=== PATIENT | male | born 1980 | race Caucasian/White ===

== ENCOUNTER 2024-10-01 13:43 | Emergency (ER) | payer BC, SELFPAY ==
--- NOTE | 2024-10-01 13:47 | ED_ITS ---
HPI - URI/Sore Throat General Chief Complaint: Upper Respiratory Infection Stated Complaint: Sore throat Time Seen by Provider: 10/01/24 13:47 History of Present Illness HPI Narrative: 44-year-old male presented for complaint of sore throat, cough, nasal congestion. Onset 11 days. Has been taking Mary-Buckner and Zyrtec. He denies shortness of breath, wheezing nausea vomiting, diarrhea, fever or lethargy. Related Data Home Medications ?Medication ?Instructions ?Recorded ?Confirmed ?Last Taken ?Type omeprazole 20 mg capsule,delayed mg PO 07/03/24 07/03/24 Unknown History release Allergies Allergy/AdvReac Type Severity Reaction Status Date / Time No Known Allergies Allergy Verified 10/01/24 13:48 Review of Systems Review of Systems: CONSTITUTIONAL: Denies body aches, fever, chills, or sweats. EYES: Denies visual changes, redness, or discharge. ENT: reports sore throat rhinorrhea, congestion, CARDIOVASCULAR: Denies chest pain, palpitations, or edema. RESPIRATORY: Denies dyspnea. GASTROINTESTINAL: Denies abdominal pain, nausea, vomiting, or diarrhea. 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 EYES: conjunctivae clear ENT: Mucous membranes moist. TM pearly rosas with normal light reflex bilaterally; no tragal tenderness. Oropharynx erythematous without lesions. Tonsils not enlarged and without exudate. No drooling, no hoarseness, no trismus, uvula midline. No tripod positioning, hot potato voice, or soft palate swelling. NECK: Supple. No lymphadenopathy CHEST: Clear to auscultation, breath sounds equal. No respiratory distress, speaks in full sentences. HEART: Regular rate and rhythm. No murmur heard. SKIN: Warm, dry, no rash. NEURO: Alert and oriented x3. Course Course Emergency Course: Patient is aware of diagnosis, understands and agrees to treatment plan. A nticipatory guidance given. Patient agrees to follow-up as directed and is aware of reasons to seek care at the emergency department. Portions of this record may have been created with voice recognition software Level of Care: Express Care Visit MDM - URI/Sore Throat MDM Narrative Medical decision making narrative: Discussed physical exam findings. Advised supportive measures and signs/symptoms to go to the ER. Pt is appropriate for outpt treatment and f/u. Differential Diagnosis Differential diagnosis: Likely upper respiratory infection, sinusitis, viral infection, bronchitis and pharyngitis Discharge Plan Discharge Clinical Impression: Sinusitis Patient Disposition: Home Condition: Stable Instructions: Antibiotic Form, Rhinosinusitis (ED) Additional Instructions: Take antibiotic as directed Recommendation: Flonase spray and Zyrtec (or Claritin/Yumiko) over the counter Cough syrup may cause drowsiness; avoid driving or take it at night time. Coricidin HBP if you have hypertension Tylenol 1000mg every 8 hours as needed for pain Symptomatic treatment includes: rest, fluids, and increase humidity of the air at home. Follow up with your primary care provider in 1 week. Go to the ER for worsening symptoms or concerns. Patient Language: Australian Prescriptions: New prednisone 20 mg tablet 40 mg PO DAILY 4 Days Qty: 8 0RF amoxicillin-pot clavulanate 875-125 mg tablet 1 tablet PO Q12H 7 Days Qty: 14 0RF No Action omeprazole 20 mg capsule,delayed release(DR/EC) PO levothyroxine 150 mcg tablet 150 mcg PO DAILY Qty: 90 1RF Follow-up/Referrals: Mary Jo Dover APRN [Primary Care Provider] - Time of Disposition: 13:57
[2024-10-01 13:49] VITALS: BP 152/101; PULSE 86; RESP 18; TEMP 36.4; O2SAT 96
--- OUTSIDE RECORDS SUMMARY | 2024-10-01 13:56 | XMS_ITS | Data Portability ---
Author Organization [place] - [facility], [facility] Address [address] [facility] [address] Assessment No assessment recorded. Plan of Treatment Reminders Order Date Submit Date Provider Last Modified By Organization Details Last Modified Time Details Appointments None recorded. Lab None recorded. Referral None recorded. Procedures None recorded. Surgeries None recorded. Imaging XR, lumbar spine, 2 view 2022 023 [email or web address], [address], 3 10:56:27 Medication Orders Medrol (Carl) 4 mg tablets in a dose pack 2022 023 [id number], [address], [place], [phone], 3 14:59:10 cyclobenzap rine 10 mg tablet 2022 023 [facility] #[id number], [address], [place], [phone], 3 14:59:11 Patient TargetsNo targets recorded. Patient InstructionsNo instructions recorded. Reason for Referral None Reported. Results Created Date Observation Date Name Description Value Unit Range Abnormal Flag Note LastModifiedBy Organization Detail LastModifiedTime 06/29/19 23 XR, lumba r spine , 2 view No observ ation record ed. [email or web address] T1 [address], [address], 06/28/2022 14:59:19 Result Notes None recorded. Medical Equipment None Reported. Allergies No known drug allergies Medications Name Sig Start Date Stop Date Status Note LastModified by Organization Details LastModified Time cyclobenzapr ine 10 mg tablet TAKE 1 TABLET BY MOUTH THREE TIMES DAILY FOR 10 DAYS NEEDED active Not Available Not Available No t Available azithromycin 250 mg tablet TAKE 2 TABLETS BY MOUTH FOR 1 DAY THEN TAKE 1 TABLET BY MOUTH DAILY FOR 4 DAYS active Not Available Not Available N ot Available benzonatate 100 mg capsule TAKE 1 CAPSULE BY MOUTH THREE TIMES DAILY NEEDED FOR COUGH active Not Available Not Available No t Available levothyroxin e 150 mcg tablet active Not Available Not Available Not Available codeine 10 mg-guaifenes in 100 mg/5 mL oral liquid TAKE 5 TO 10 ML BY MOUTH EVERY 4 HOURS NEEDED FOR COUGH active Not Available Not Available No t Available methylpredni solone 4 mg tablets in a dose pack FOLLOW PACKAGE DIRECTIONS active Not Available Not Available N ot Available escitalopram 10 mg tablet active Not Available Not Available Not Available Vitals Date Recorded Body height Body mass index (BMI) Body weight Respiratory rate Provider Name and Address Organization Details Last Updated DateTime 06/28/2022 180.34 cm 29.3 kg/m2 33569.4 g 20 /min Karis Arguelles [facility], 06/28/2022 14:38:19 Social History None recorded. Functional Status None recorded. Mental Status None recorded. Family History Nothing Reported. Medical History No medical history recorded. Past Encounters Encounter ID Performer Location Encounter Start Date Encounter Closed Date Diagnosis/Indication Diagnosis SNOMED-CT Code Diagnosis ICD10 Code Diagnosis Note [id number] Adrian Torre MD [address] [id number] 06/28/2022 14:27:37 06/28/2022 15:38:51 Low back pain 235814784 M54.50 Patient's history and exam is concerning for possible herniated disc. Patient states that he does not live in this area and is traveling. We did provide him with a copy of his x-rays today. I advised him he needs to follow-up with a child care specialist at home. Patient was started on Medrol Dosepak. Patient was also provided with a muscle relaxer. I did advise him this may cause drowsiness and use with caution. Patient was advised if he has worsening weakness in his legs, numbness, tingling or develops any bowel or urinary incontinen ce he needs to go to the emergency room. Health Concerns Section Related Observation LastModified by Organization Detai ls LastModified Time None Recorded Concern Status LastModified by Organization Details LastModified Time None Recorded Advance Directives Directive None Recorded Payers Insurance Date Sequence Insurance Name Policy Number Policy Ortiz Covered Member ID Ortiz Member ID Guarantor Name 06/28/2022 1 [employer] [id number] Sydnee Weston Hepfer [id number] 05 Terence Weston Hepfer 06/28/2022 1 [place] [id number] Terence Weston Hepfer [id number] Terence Weston Hepfer Notes Date Note Type Note Provider Name and Address Organization Details Recorded Time 06/28/2022 text/html Lower BackReport ed bypatient.Location :midline; posterior Quality:aching Context:DOI: 06/28/22 Patient notes he was putting a car seat in the vehicle, heard a pop, and felt immediate pain. Alleviating Factors:NSAIDs; TENS unit Aggravating Factors:walking; twisting; weightbearing; going from sit to stand Associated Symptoms:no numbness; no tingling; no swelling; no ecchymosis;popping /clicking; Muscle spasms Previous Surgery:none Prior Imaging:none; 7yrs ago, similar episode happened Previous Injections:none Previous PT:none Adrian Torre MD [address] [place] [address], [place], [address], [facility], 06/28/2022 15:32:56
== END 2024-10-01 13:58 | disposition home or self-care (01) ==
PROVIDERS: Emergency Provider Nurse Practitioner Family; PCP Nurse Practitioner Family
DX: J32.9 Chronic sinusitis, unspecified (principal); Z87.891 Personal history of nicotine dependence
CPT/HCPCS: 99213; G0463

== ENCOUNTER 2025-02-25 08:17 | Outpatient (CLI) | payer BC, SELFPAY ==
--- NOTE | ~2025-02-25 | MR_ITS ---
EXAMINATION: MR knee RT wo con DATE: 02/25/2025 08:52 INDICATION: Injury TECHNIQUE: Magnetic resonance imaging (MRI) of the knee was performed without intravenous contrast. Sequences included axial PD-weighted FS FSE, coronal PD- weighted FSE and PD-weighted FS FSE, sagittal PD-weighted FSE, and sagittal T2- weighted FS FSE. COMPARISON: None. FINDINGS: No fracture subluxation or dislocation present. Mild to moderate osteoarthritic appearing degenerative changes developing including multiple areas of cartilaginous thinning and erosion most prominent in the medial joint space and patellofemoral joint. Tiny subchondral cystic focus developing in the lateral facet of the patella. Small joint effusion is present. Horizontal tear through the posterior horn of the medial meniscus can be seen on image 17 series 4, and on image 23 series 6. The tear extends from the posterior or peripheral margin into the central white portion as can be seen on image 22 series 6. The tear also appears to extend into the medial margin of the anterior horn as can be seen on image 22 series 6. The lateral meniscus is intact. Mild T2-weighted hyperintense signal changes in the distal fibers of the ACL which otherwise appears intact. PCL appears normal. Collateral ligaments appear intact. Extra articular soft tissues including quadriceps and infrapatellar tendon appear intact. IMPRESSION: 1. Complex horizontal tear through the medial meniscus involving the posterior horn and portions of the anterior horn; also appears to be small vertical component in the white zone as discussed above. 2. Mild hyperintense signal change in the distal ACL fibers possibly representing mild sprain. The ACL and PCL otherwise appear intact. 3. 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 Reviewed, dictated and finalized at location A. RACY COORDINATOR IMPRESSION: 1. Complex horizontal tear through the medial meniscus involving the posterior horn and portions of the anterior horn; also appears to be small vertical compo nent in the white zone as discussed above. 2. Mild hyperintense signal change in the distal ACL fibers possibly representi ng mild sprain. The ACL and PCL otherwise appear intact. 3. Mild to moderate osteoarthritic tricompartmental degenerative changes also n oted.
== END 2025-02-25 08:18 | disposition home or self-care (01) ==
PROVIDERS: PCP Nurse Practitioner Family; Visit Provider Nurse Practitioner Family
DX: S83.231A Complex tear of medial meniscus, current injury, right knee, initial encounter (principal); M23.8X1 Other internal derangements of right knee; M17.11 Unilateral primary osteoarthritis, right knee; M25.561 Pain in right knee; M25.661 Stiffness of right knee, not elsewhere classified; X58.XXXA Exposure to other specified factors, initial encounter
CPT/HCPCS: 73721

== ENCOUNTER 2025-03-29 00:34 | Day surgery (SDC) | payer BC, SELFPAY ==
[2025-03-24 10:07] VITALS: BMI 28.4
--- NOTE | 2025-03-24 10:11 | SUR.PREOP ---
[facility] has started construction of its new state of the art ER which will open Spring 2026. With this, we anticipate parking may be a challenge for some our surgical patients and families. Parking spaces are limited but are available for all Surgical, obstetrics, and ER patients sharing this lot. If you arrive and find you are having a hard time finding a parking space, please note that we understand the challenges, please drive around the hospital and park near Hospital Entrance 1. When you enter this entrance, you can ask a volunteer to direct or take you back to the surgical waiting area to check in. We appreciate everyone?s understanding of these expected challenges while we build for your future. Report to the Outpatient Waiting Room, entrance under the green pavilion located off [address], at time 0800 on date 03/29/25. Planned Procedure Time: 1000.? Time changes happen often and if your time is changed the preop area will call you the afternoon before. - You and your visitor will be asked to self-screen and do not enter if you have any COVID symptoms. Please call surgeon if you need to reschedule. - A mask is optional within the hospital at this time. Patients may have clear liquids (water, carbonated beverages, clear teas, apple juice) until 3 hours prior to surgery with a maximum of 20 ounces. - No food from midnight until time of surgery and no smoking, or chewing tobacco (or any form of nicotine). No chewing gum, candy or mints. - Infants may have breast milk until 4 hours before surgery, formula 6 hours prior to surgery. - Children will be allowed to drink immediately following surgery.? If applicable, please bring a bottle or sippy cup to assist with drinking. Juice, water, soda, and popsicles are readily available.? For infants on formula, please bring formula the day of surgery.? Pacifiers are allowed. Take only the following medications with a SIP of water on the morning of surgery: __levothyroxine__ DO NOT STOP ANY OF YOUR OTHER PRESCRIPTION MEDICATIONS PRIOR TO SURGERY EXCEPT THE FOLLOWING Hold all vitamins and supplements for 3 days per anesthesiologist. Medications to discontinue per physician _hold omeprazole morning of surgery_ Date to take last dose Please no make-up, nail korean, hairspray, perfume, deodorant, or body powder the day of surgery.? No jewelry (including any body piercings) or valuables the day of surgery, leave them at home.? Please take a shower or bath the night before, or the morning of, surgery with an antibacterial soap.? Wear comfortable, loose fitting clothing.? Children are encouraged to wear pajamas. - Jewelry must be removed prior to entering the operating room.? Rings and piercings that are not removed may be cut off. - The hospital will not accept responsibility for valuables.? - Please leave all valuables, including medications, at home the day of surgery. If you are going home after surgery, a licensed tow car driver must drive you home.? - NO public transportation without another adult if you receive anesthesia. - We recommend that an adult stay with you for 24 hours following discharge. - We also recommend that you do not drive, make important decision, drink alcoholic beverages, or take any drugs that were not prescribed by your health care provider for at least 24 hours after your discharge time. For Pediatric surgeries, we recommend two adults accompany the child home. Follow any additional instructions given to you from your surgeon. Telephone instructions given to __patient__and asked if any additional questions and then verbalized understanding. Patient advised to call surgeon office or pre surgery nurse liaison [phone] if any additional questions.
--- NOTE | 2025-03-25 07:28 | PM.IMHP2 ---
H&P: HPI History of Present Illness Date/Time: 03/25/25 07:28 Chief Complaint: Patient has catching locking and pain in the right knee. He has mechanical symptoms. He has failed conservative treatment like to consider arthroscopic intervention. His MRI demonstrates a meniscal tear. 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 BMI 29.0-29.9,adult Encounter to establish care Family History Family History Mother Cancer Depression Thyroid disease Father Hypertension Thyroid disease Sibling Depression Hypertension Thyroid disease Grandparent Depression Social History Social History (Updated 03/04/25 @ 08:14 by Selene Hernandez [facility]) Smoking status: Never smoker Alcohol intake: current Drinks per week: 7 Substance use: never Substance use type: does not use Lack of Transportation: No Lack of Food: Never True Current Housing: I Have Housing Concerned About Future Housing: No Difficulty Paying Gas/Electric Bills: No Difficulty Paying for Meds: No Currently Unemployed: No Education: High School Diploma/GED Difficulty w/ Childcare or Family Care: No Living arrangements: with family Meds Home Medications and Allergies Home Medications ?Medication ?Instructions ?Recorded ?Confirmed ?Type omeprazole 20 mg capsule,delayed 20 mg PO DAILY 07/03/24 03/24/25 History release levothyroxine 150 mcg tablet 150 mcg PO DAILY #90 tabs 12/08/24 03/24/25 Rx Allergies Allergy/AdvReac Type Severity Reaction Status Date / Time No Known Allergies Allergy Verified 03/24/25 10:06 Exam Narrative: On exam he has mechanical catching with manipulation. He is tender medially has a positive Delmy's and pain to palpation manipulation. He walks with an antalgic gait. Neurologically he is grossly intact. Eyes: General: appearance normal, both eyes and all related structures Neck: Neck: supple Resp: Effort & Inspection: normal respiratory effort Cardio: Rate: regular rate Rhythm: regular rhythm Radiology Reports: Comments: Magnetic Resonance Report Signed Patient: Terence Rondon EXAMINATION: MR knee RT wo con DATE: 02/25/2025 08:52 INDICATION: Injury TECHNIQUE: Magnetic resonance imaging (MRI) of the knee was performed without intravenous contrast. Sequences included axial PD-weighted FS FSE, coronal PD-weighted FSE and PD-weighted FS FSE, sagittal PD-weighted FSE, and sagittal T2-weighted FS FSE. COMPARISON: None. FINDINGS: No fracture subluxation or dislocation present. Mild to moderate osteoarthritic appearing degenerative changes developing including multiple areas of cartilaginous thinning and erosion most prominent in the medial joint space and patellofemoral joint. Tiny subchondral cystic focus developing in the lateral facet of the patella. Small joint effusion is present. Horizontal tear through the posterior horn of the medial meniscus can be seen on image 17 series 4, and on image 23 series 6. The tear extends from the posterior or peripheral margin into the central white portion as can be seen on image 22 series 6. The tear also appears to extend into the medial margin of the anterior horn as can be seen on image 22 series 6. The lateral meniscus is intact. Mild T2-weighted hyperintense signal changes in the distal fibers of the ACL which otherwise appears intact. PCL appears normal. Collateral ligaments appear intact. Extra articular soft tissues including quadriceps and infrapatellar tendon appear intact. IMPRESSION: 1. Complex horizontal tear through the medial meniscus involving the posterior horn and portions of the anterior horn; also appears to be small vertical component in the white zone as discussed above. 2. Mild hyperintense signal change in the distal ACL fibers possibly representing mild sprain. The ACL and PCL otherwise appear intact. 3. 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 Reviewed, dictated and finalized at location A. OSITION TILE LAYER Knee X-Ray 03/04/25 Knee MRI 02/25/25 Orthopedics Result Report 03/04/25 Assessment and Plan Assessment and plan (1) Acute medial meniscus tear of right knee: Code(s): S83.241A - Other tear of medial meniscus, current injury, right knee, initial encounter Status: Acute Assessment and Plan: Patient has a medial meniscal tear right knee. He has catching locking mechanical type symptoms. He has failed conservative treatment like to consider arthroscopic intervention. I discussed the risks, benefits, limitations, and alternatives with the patient in detail he understands and agrees. I told him I can not change any underlying arthritis but should be able to get rid of the cartilage tear. Will proceed per his request discussed.
[2025-03-29] VITALS (9 sets, daily range): BP systolic 128–150; BP diastolic 71–104; PULSE 49–70; RESP 8–16; TEMP 36.2–37.1; O2SAT 97–100
--- OUTSIDE RECORDS SUMMARY | 2025-03-29 00:36 | XMS_ITS | Clinical Summary ---
Author Organization [address] Address [address] [place] [id number] Care Team Providers Care Rfp Writer Name Role Phone Juanito Fischer MD Primary Care Provider [phone] Allergies No known active allergies Medications diclofenac DR (VOLTAREN) 75 mg EC tabletIndication s:Acute pain of right knee,Effusion of right knee Take 1 tablet (75 mg total) by mouth 2 (two) times a day 60 tablet 2 4 Active levothyroxine (SYNTHROID) 150 mcg tablet TAKE 1 TABLET(150 MCG) BY MOUTH DAILY 90 tablet 3 4 Active creatine monohydrate 5,000 mg powder in packet Take by mouth Active whey protein isolate, bulk, 100 % powder Active collagen, hydrolysate, bovine, (collagen, hydr, bovine,, bulk,) 100 % powder Active omeprazole (PriLOSEC) 20 mg capsuleIndicatio ns:Gastroesophag eal reflux disease without esophagitis TAKE 1 CAPSULE(20 MG) BY MOUTH DAILY BEFORE BREAKFAST 30 capsule 3 5 Active Active Problems Problem Noted Date Diagnosed Date 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 -pathology discussed in detail including small increased risk of esophageal cancer -start omeprazole 20 mg p.o. daily -repeat EGD April 2024 for surveillance -The risks (risks of bleeding, infection, perforation requiring surgery, missed polyps/cancer, dental injury, aspiration pneumonia, anesthesia complications such as drug reaction and cardiopulmonary complications including rare chance of ), benefits, and alternatives of the planned procedure were explained to the patient who understands and consents to having procedure done. History of colon polyps 10/10/2023 Assessment & Plan (10/10/2023 8:09 AM CDT): Colonoscopy April 2023 with 1 tubular adenoma. -repeat colonoscopy April 2026 Chandler's esophagus with dysplasia 10/10/2023 Hx of colonic polyp 10/10/2023 BRBPR (bright red blood per rectum) 03/12/2023 Assessment & Plan (03/12/2023 1:03 PM INJECTION PRESS OPERATOR): Subsided after episode in June Gastroesophageal reflux disease 03/12/2023 Assessment & Plan (10/10/2023 8:15 AM CDT): Chronic GERD, currently well-controlled with dietary changes. -given recent diagnosis of Barretts, encouraged patient to restart omeprazole 20 mg p.o. daily, patient voiced understanding and agreed with plan -RECOMMENDATIONS given include: anti-reflux maneuvers, Avoid acidic foods like oranges and tomatoes., avoidance of spicy foods, avoid eating 3-4 hours before bed, elevation of the head of the bed, and weight loss Assessment & Plan (03/12/2023 1:05 PM INJECTION PRESS OPERATOR): RECOMMENDATIONS given include: anti-reflux maneuvers, Avoid acidic foods like oranges and tomatoes., avoidance of spicy foods, avoid eating 3-4 hours before bed, elevation of the head of the bed, and weight loss Avoid alcohol schedule EGD The risks (risks of bleeding, infection, perforation requiring surgery, missed polyps/cancer, dental injury, aspiration pneumonia, anesthesia complications such as drug reaction and cardiopulmonary complications including rare chance of ), benefits, and alternatives of the planned procedure were explained to the patient who understands and consents to having procedure done. Screening for colon cancer 03/12/2023 Assessment & Plan (03/12/2023 1:05 PM INJECTION PRESS OPERATOR): Schedule colonoscopy The risks (risks of bleeding, infection, perforation requiring surgery, missed polyps/cancer, dental injury, aspiration pneumonia, anesthesia complications such as drug reaction and cardiopulmonary complications including rare chance of ), benefits, and alternatives of the planned procedure were explained to the patient who understands and consents to having procedure done. No family history of colon cancer or IBD, this will be his first colonoscopy Adjustment disorder 12/13/2017 Benign essential hypertension 02/14/2016 Other hyperlipidemia 02/14/2016 Hypothyroidism 07/11/2015 Immunizations Immunization Administration Dates Next Due Influenza, Unspecified 03/20/2023(Deferr ed: Patient Refused),01/23/2022(Deferred: Patient Refused),01/13/2021(Deferred: Patient Refused),02/10/2020(Deferred: Patient Refused) Moderna SARS-CoV-2 Monovalen t Vaccination (12+ YRS) 10/22/2020 Surgical History Surgery Date Site/Laterality Comments VASECTOMY WISDOM TOOTH EXTRACTION ESOPHAGOGASTRODUODENOSCOPY 05/10/2023 COLONOSCOPY 05/10/2023 Medical History Medical History Date Comments Hypertension Thyroid disease Motion sickness GERD (gastroesophageal reflux disease) PONV (postoperative nausea and vomiting) pt denies Family History Medical History Relation Name Comments Hypertension Father Ed Cancer Mother Magdalene Relation Name Status Comments Father Ed Mother Magdalene Social History Tobacco Use Types Packs/Day Years Used Date Smoking Tobacco: Former Cigarettes Q uit: 09/18/1990 Smokeless Tobacco: Never Tobacco Cessation:Counseling Given: Not Answered Alcohol Use Standard Drinks/Week Comments Yes 0 (1 standard drink = 0.6 oz pur e alcohol) AUDIT-C Answer Date Recorded Q1: How often do you have a drink containing alc ohol? Monthly or less 04/28/2024 Q2: How many drinks containi ng alcohol do you have on a typical day when you are drinking? 1 or 2 04/28/2024 Q3: How often do you have si x or more drinks on one occasion? Never 04/28/2024 PHQ-2 Answer Date Recorded PHQ-2 Total Score 0 10/11/2023 Personal Safety Answer Date Recorded Have you ever been in or are you currently in a harmful physical or emotional relationship or is someone making you feel afraid or unsafe? Denies 04/28/2024 Sex and Gender Information Value Date Recorded Sex Assigned at Not on file Legal Sex Male 5:31 PM INJECTION PRESS OPERATOR Gender Identity Male 03/16/2020 4:30 PM INJECTION PRESS OPERATOR Sexual Orientation Not on file Last Filed Vital Signs Vital Sign Reading Time Taken Comments Blood Pressure 112/80 04/28/2024 12:50 PM INJECTION PRESS OPERATOR Pulse 56 04/28/2024 12:50 PM INJECTION PRESS OPERATOR Temperature 36.8 C (98.3 F) 04/28/2024 12:28 PM INJECTION PRESS OPERATOR Respiratory Rate 16 04/28/2024 12:50 PM INJECTION PRESS OPERATOR Oxygen Saturation 98% 04/28/2024 12:50 PM INJECTION PRESS OPERATOR Inhaled Oxygen Concentration - - Weight 97.7 kg (215 lb 6.4 oz) 10/11/2023 10:09 AM CDT Height 180.3 cm (5' 11) 10/11/2023 10:09 AM CDT Body Mass Index 30.04 10/11/2023 10:09 AM CDT Plan of Treatment Health Maintenance Due Date Last Done Comments Hepatitis C Screening 1980 DTaP/Tdap/Td Vaccine (1 - Tdap) 1989 Hepatitis B Screening 1996 Regular Well Visit/Exam 18-64 11/09/2021 11/09/2020, 11/09/2020, 03/31/2019, Additional history exists Depression Screening 10/10/2024 10/11/2023, 11/15/2021, 11/09/2020, Additional history exists Covid-19 Vaccine (2 - season) 2024 10/22/2020 Influenza Vaccine (#1) 2024 Colon Cancer Screening-Colonoscopy 05/10/2026 05/10/2023 HPV Vaccines Aged Out No longer eligi ble based on patient's age to complete this topic Pneumococcal vaccine <65 Aged Out No longer eligible based on patient's age to complete this topic Procedures Procedure Name Priority Date/Time Associated Diagnosis Comments COLONOSCOPY 05/10/2023 10:02 AM INJECTION PRESS OPERATOR from Last 3 Months or Most Recently Relevant to Health Maintenance Results * COLONOSCOPY (05/10/2023 10:02 AM INJECTION PRESS OPERATOR) Anatomical Region Laterality Modality Other Narrative Procedure Note David Lauren MD - 05/10/2023 10:02 AM CST [facility] Patient Name: Terence Rondon Procedure Date: 05/10/2023 10:02 AM Date of : 1980 Admit Type: Outpatient Age: 43 Gender: Male Attending MD: David Lauren M.D. Room: [facility] ENDOSCOPY ROOM 06 Note Status: Finalized Procedure: Colonoscopy Indications: Screening for colorectal malignant neoplasm Referring MD: Gale Kasper Providers: David Lauren M.D. Medicines: Monitored Anesthesia Care Complications: No immediate complications. Estimated Blood Loss: Estimated blood loss: none. Procedure: Pre-Anesthesia Assessment: - Prior to the procedure, a History and Physicalwas performed, and patient medications and allergieswere reviewed. The risks and benefits of the procedureand the sedation options and risks were discussed withthe patient. All questions were answered and informed consent was obtained. Patient identification and proposed procedure were verified. After reviewingthe risks and benefits, the patient was deemed in satisfactory condition to undergo the procedure.The anesthesia plan was to use monitored anesthesiacare (MAC). Immediately prior to administration of medications, the patient was re-assessed foradequacy to receive sedatives. The heart rate, respiratory rate, oxygen saturations, blood pressure, adequacyof pulmonary ventilation, and response to care were monitored throughout the procedure. The physical status of the patient was re-assessed after the procedure. The benefits, risks and alternatives of theprocedure and sedation were discussed and informed consentwas obtained. All questions were answered. Please referto the signed informed consent document in the medical record. The scope was passed under direct vision.The [id number]-[id number] colonoscope was introduced through theanus and advanced to the cecum, identified byappendiceal orifice and ileocecal valve. The colonoscopy was performed without difficulty. The patient tolerated the procedure well. The quality of the bowel preparation was adequate. Scope withdrawal time was13 minutes. Prep was administered in a split dose. Findings: The perianal and digital rectal examinations were normal. Two polyps were found in the sigmoid colon. The polyps werediminutive in size. These polyps were removed with a cold biopsy forceps.Resection and retrieval were complete. A 15 mm polyp was found in the rectum. The polyp was sessile. Thepolyp was removed with a hot snare. Resection and retrieval werecomplete. A few medium-mouthed diverticula were found in the sigmoid colon and descending colon. Non-bleeding internal hemorrhoids were found during retroflexion. The hemorrhoids were small. The exam was otherwise without abnormality. Impression: - Two diminutive polyps in the sigmoid colon,removed with a cold biopsy forceps. Resected andretrieved. - One 15 mm polyp in the rectum, removed with a hot snare. Resected and retrieved. - Diverticulosis in the sigmoid colon and in the descending colon. - Non-bleeding internal hemorrhoids. - The examination was otherwise normal. Recommendation: - Patient has a contact number available for emergencies. The signs and symptoms of potential delayed complications were discussed with thepatient. Return to normal activities tomorrow. Written discharge instructions were provided to thepatient. - High fiber diet. - Continue present medications. - Await pathology results. - Repeat colonoscopy in 3 years for surveillance. - Return to GI clinic as previously scheduled. David Lauren M.D. David Lauren M.D. 05/10/2023 11:05:19 AM . Number of Addenda: 0 Note Initiated On: 05/10/2023 10:02 AM Recognized by the [employer] for promoting quality in endoscopy David Lauren MD ENDOSCOPY PROCEDURES Final Resul t from Last 3 Months or Most Recently Relevant to Health Maintenance [place] Care Teams Rfp Writer Relationship Specialty Start Date End Date Juanito Fischer MD [address], [place] [id number] PCP - General Family Practice 04/28/24
--- OUTSIDE RECORDS SUMMARY | 2025-03-29 00:36 | XMS_ITS | Data Portability ---
Author Organization [place] - [facility], [facility] Address [address], [address] Assessment No assessment recorded. Plan of Treatment Reminders Order Date Submit Date Provider Last Modified By Organization Details Last Modified Time Details Appointments None recorded. Lab None recorded. Referral None recorded. Procedures None recorded. Surgeries None recorded. Imaging XR, lumbar spine, 2 view 2022 023 [email or web address], [address], 3 10:56:27 Medication Orders Medrol (Carl) 4 mg tablets in a dose pack 2022 023 [id number], [address] [place], [id number], 3 14:59:10 cyclobenzap rine 10 mg tablet 2022 023 [id number], [address] [place], [place], [phone], 3 14:59:11 Patient TargetsNo targets recorded. Patient InstructionsNo instructions recorded. Reason for Referral None Reported. Results Created Date Observation Date Name Description Value Unit Range Abnormal Flag Note LastModifiedBy Organization Detail LastModifiedTime 06/29/19 23 XR, lumba r spine , 2 view No observ ation record ed. [email or web address] T[address], [address], 06/28/2022 14:59:19 Result Notes None recorded. Medical [...] Updated DateTime 06/28/2022 180.34 cm 29.3 kg/m2 41797.4 g 20 /min Karis Arguelles [facility], 06/28/2022 14:38:19 Social History None recorded. Functional Status None recorded. Mental Status None recorded. Family History Nothing Reported. Medical History No medical history recorded. Past Encounters Encounter ID Performer Location Encounter Start Date Encounter Closed Date Diagnosis/Indication Diagnosis SNOMED-CT Code Diagnosis ICD10 Code Diagnosis IMO Codes Diagnosis Note [id number] Adrian Torre MD [address] [id number] 06/28/2022 14:27:37 06/28/2022 15:38:51 Low back pain 578113726 M54.50 Patient's history and exam is concerning for possible herniated disc. Patient states that he does not live in this area and is traveling. We did provide him with a copy of his x-rays today. I advised him he needs to follow-up with a clinical informatics specialist at home. Patient was started on [...] ID Guarantor Name 06/28/2022 1 [place] [id number] Sydnee Weston Hepfer [id number] 05 Terence Weston Hepfer 06/28/2022 1 [place] [id number] Terence Weston Hepfer [id number] 05 Terence Weston Hepfer Notes Date Note Type Note Provider Name and Address Organization Details Recorded Time 06/28/2022 text/html Lower BackReport ed by PatientHPIFor associated symptoms, patient reportspopping/clic kingbut reportsno numbness,no tingling,no swelling, andno ecchymosis(muscle spasms). For location, patient reportsmidlineandpo sterior. For quality, patient reportsaching. For alleviating factors, patient reportsnsaids(tens unit). For aggravating factors, patient reportswalking,twis ting,weightbearing, andgoing from sit to stand. For previous surgery, patient reportsnone. For prior imaging, patient reportsnone(7yrs ago, similar episode happened). For previous injections, patient reportsnone. For previous pt, patient reportsnone. For context, (doi: 06/28/22patient notes he was putting a car seat in the vehicle, heard a pop, and felt immediate pain.).ROS as noted in the HPI Adrian Torre MD [address] [place] [address], [place], [address], [facility], 06/28/2022 15:32:56
--- OUTSIDE RECORDS SUMMARY | 2025-03-29 00:36 | XMS_ITS | Encounter Summary ---
Author Organization [facility] Care Team Providers Care Glycerin Supervisor Name Role Phone Enrike Rodrigez MD Primary Care Provid er Juanito Fischer MD Primary Care Provider [phone] Encounter Details Date Type Department Care Team (Latest Contact Info) Description 09/05/2015 Orders Only [facility] CLINCONV ProviderKisha MD [address] [place] [id number] Social History Tobacco Use Types Packs/Day Years Used Date Smoking Tobacco: Never Assessed Sex and Gender Information Value Date Recorded Sex Assigned at Not on file Legal Sex Male 5:31 PM MARKET EDITOR Gender Identity Male 03/16/2020 4:30 PM MARKET EDITOR Sexual Orientation Not on file documented as of this encounter Plan of Treatment Not on file documented as of this encounter Procedures Procedure Name Priority Date/Time Associated Diagnosis Comments SCAN - LABS 09/08/2015 12:00 AM CDT documented in this encounter Results * SCAN - LABS (09/08/2015 12:00 AM CDT) Narrative 09/08/2015 12:00 AM CDT Ordered by an unspecified provider. us Historical Provider Final Res ult documented in this encounter Visit Diagnoses Not on filedocumented in this encounter Additional Health Concerns Infection Onset Date Last Indicated Resolved Time COVID19 03/08/2020 03/08/2020 03/22/2020 3:07 AM MARKET EDITOR COVID: Recovered Comment:Added based on recent COVID infection. 03/22/2020 04/18/2020 07/20/2020 3:07 AM C DT documented as of this encounter Care Teams Glycerin Supervisor Relationship Specialty Start Date End Date Enrike Rodrigez MD PCP - General Family Medicine 09/15/18 04/27/24 Juanito Fischer MD [address] [place] [address] PCP - General Family Practice 04/28/24 documented as of this encounter
--- NOTE | 2025-03-29 07:49 | WPDANESEPPF ---
Anes - Initial Pre Proc Eval Procedure: Operation Date: 03/29/25 10:00 Proposed Procedures p Right Knee Arthroscopy, Partial Meniscectomy, Proceed As Indicated - Jordan Gaffney MD Date/Time: 03/29/25 07:49 Surgeon: Jordan Gaffney MD Pre Op Diagnosis: right knee medial meniscal tear Patient Data Age: 44 Gender: M Height: 1.8 m Weight: 92.54 kg Allergies Allergy/AdvReac Type Severity Reaction Status Date / Time No Known Allergies Allergy Verified 03/29/25 09:07 Home Medications ?Medication ?Instructions ?Recorded ?Confirmed ?Type omeprazole 20 mg capsule,delayed 20 mg PO DAILY 07/03/24 03/29/25 History release levothyroxine 150 mcg tablet 150 mcg PO DAILY #90 tabs 12/08/24 03/29/25 Rx hydrocodone 5 mg-acetaminophen 325 1 tablet PO Q6H PRN pain #30 tabs 03/29/25 Rx mg tablet Patient hx anesthesia problems: none Family hx anesthesia problems: none Results Review: All pre-operative results and documents have been reviewed as part of the pre-operative evaluation. 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 BMI 29.0-29.9,adult Encounter to establish care Family History Family History Mother Cancer Depression Thyroid disease Father Hypertension Thyroid disease Sibling Depression Hypertension Thyroid disease Grandparent Depression Social History Social History (Updated 03/04/25 @ 08:14 by Selene Hernandez RIM ROLLER OPERATOR) Smoking status: Never smoker Alcohol intake: current Drinks per week: 7 Substance use: never Substance use type: does not use Lack of Transportation: No Lack of Food: Never True Current Housing: I Have Housing Concerned About Future Housing: No Difficulty Paying Gas/Electric Bills: No Difficulty Paying for Meds: No Currently Unemployed: No Education: High School Diploma/GED Difficulty w/ Childcare or Family Care: No Living arrangements: with family Anes - Eval Final PreProcedure Day of Procedure 03/29/25 07:49 Patient weight: overweight Heart: regular rate and rhythm Lungs: clear to auscultation Airway: Mallampati scale class II Neurological: alert and oriented Last oral intake: >/= 8 hours ASA classification: III Emergent: no Anesthetic plan: proceed Anesthesia type and monitoring: general LMA and standard monitoring Results Review: All pre-operative results and documents have been reviewed as part of the pre-operative evaluation. Informed Consent: The patient's anesthetic plan and its attendant risks and benefits were discussed with the patient/family/POA. Questions were solicited and answers provided to the satisfaction of the patient/family/POA.
[2025-03-29] MEDS: LACTATED RINGERS 1,000 ML 30 ML IV CONT (08:30)
[2025-03-29] MEDS: KETOROLAC 15 MG/ML VIAL (*BKC) IV PUSH (08:30)
[2025-03-29] MEDS: ACETAMINOPHEN 500 MG TABLET 1000 MG PO (08:30)
--- NOTE | 2025-03-29 09:47 | WPDHPUPDATE1 ---
History and Physical Update Update Date/Time: 03/29/25 09:47 History and Physical has been reviewed, including an updated exam of the patient. There are NO changes in the patient's condition. Risks, benefits, and alternatives have been discussed and questions answered. Patient agrees to proceed with procedure.
[2025-03-29] MEDS: ceFAZolin 2 GM in SODIUM CHLORIDE 0.9% IV 50 ML 100 ML IVPB (09:53)
[2025-03-29] MEDS: LIDO 1%/EPINEPHRINE 1:100,000 50 ML VIAL (10:23)
--- NOTE | 2025-03-29 10:32 | W.PM.PROC2 ---
Procedure Note - Detailed Date of Procedure 03/29/25 Pre-op Diagnosis Right knee medial meniscal tear Post-op Diagnosis Same Procedure Performed RIGHT knee arthroscopy with partial meniscectomy Surgeon Jordan Gaffney MD Anesthesia General Indications Pain, Locking and Catching Description of Procedure Patient brought to [id number] room # []. An anesthetic was administered. The knee was sterilely prepped and draped in the usual manner. Standard portals were used. Superior medial portal was used for the outflow cannula, inferior lateral portal was used for the scope, inferior medial portal was used for the instruments. Arthroscopy was performed, the patellar femoral joint degenerative changes. The medial compartment showed a complex tear. The lateral compartment showed fraying. The ACL was intact. Using baskets and lucas the meniscal tear was trimmed back to a stable base so the nothing further could be pulled into the joint. Any loose or delaminated fragments were gently trimmed to a stable base. At this point the instruments were withdrawn, sutures placed and patient left the operating room in satisfactory condition. Estimated Blood Loss 20 Drains No Packing No Pathology None sent Complications No immediate complications Condition Stable Disposition PACU [facility] Billing Surgery - Charge Forward: Surgery Billing ([id number] MMT)
[2025-03-29] MEDS: fentaNYL CITRATE INJ (*CRX) 100 MCG/2 ML VIAL 25 MCG IV PUSH ×4 (11:01→11:20)
[2025-03-29] MEDS: oxyCODONE HCL (*CRX) 5 MG TAB IR PO (12:14)
== END 2025-03-29 13:00 | disposition home or self-care (01) ==
PROVIDERS: PCP Nurse Practitioner Family; Visit Provider Orthopaedic Surgery
PROC: (CPT 29870; principal; 2025-03-29 10:00)
DX: S83.231A Complex tear of medial meniscus, current injury, right knee, initial encounter (principal); M17.11 Unilateral primary osteoarthritis, right knee; M25.461 Effusion, right knee; X58.XXXA Exposure to other specified factors, initial encounter; E03.9 Hypothyroidism, unspecified; Z79.891 Long term (current) use of opiate analgesic; Z80.9 Family history of malignant neoplasm, unspecified
CPT/HCPCS: 29881; J0690; A9270; J1100; J1885; J2004; J2250; J2405; J2704; J3010; J7120